=== PATIENT | male | born 1975 | race Caucasian/White ===

== ENCOUNTER → 2025-03-13 | Outpatient (CLI) | payer MEDICAID, SELFPAY ==
--- NOTE | 2025-03-13 13:00 | XR_ITS ---
Examination: Retroperitoneal ultrasound, complete Technique: Multiple high resolution grayscale images of the retroperitoneum obtained, including kidneys and bladder. Exam date and time:March 13, 2025 1327 hours INDICATIONS: Right renal agenesis, acute renal insufficiency on laboratory examination 3 weeks ago FINDINGS: Absent right kidney Left kidney 14.4 cm cortex 2.9 cm Mild renal parenchymal scar formation Minimal left hydronephrosis 24 mm upper pole cyst No bladder mass or bladder calculi Bladder prevoid volume 203 cc postvoid volume 12 cc Prostatomegaly volume 40.5 cc no prostate nodules IMPRESSION: Absent right kidney Mild left renal parenchymal scar formation Minimal left hydronephrosis
== END | disposition home or self-care (01) ==
PROVIDERS: PCP Physician Assistant; Referring Provider Internal Medicine; Visit Provider Internal Medicine
DX: N28.89 Other specified disorders of kidney and ureter (principal); N13.30 Unspecified hydronephrosis; Z90.5 Acquired absence of kidney
CPT/HCPCS: 76770